=== PATIENT | male | born 1985 | race Caucasian/White ===

== ENCOUNTER → 2020-08-30 | Outpatient (CLI) | payer OTHER ==
[~2020-08-30] MED LIST: NONE PER PT
== END | disposition home or self-care (01) ==
LOC: STAR 15:14
PROVIDERS: ATTEND Thoracic Surgery (Cardiothoracic Vascular Surgery)
DX: Z20.822 Contact with and (suspected) exposure to COVID-19 (principal)
CPT/HCPCS: 87635

== ENCOUNTER 2020-09-05 09:45 | Day surgery (SDC) | payer OTHER ==
[~2020-09-05] VITALS: Ht 190.5 cm; Wt 108.3 kg
[2020-09-05] MEDS ORDERED: LACTATED RINGERS 1,000 ML IV SCH (10:30)
[2020-09-05] MEDS ORDERED: CHLORHEXIDINE 15 ML UDC MM ONE (10:30)
[2020-09-05] MEDS ORDERED: BUPIVACAINE/PF 0.5% ONE (11:36)
[2020-09-05] MEDS ORDERED: MIDAZOLAM 1 MG/ML, 2ML ONE (11:45)
[2020-09-05] MEDS ORDERED: FENTANYL PF 250 MCG/5ML ONE (11:46)
[2020-09-05] MEDS ORDERED: ONDANSETRON 2MG/ML, 2ML IVPush PRN (12:00)
[2020-09-05] MEDS ORDERED: ACETAMINOPHEN 325 MG TABLET PO PRN (12:00)
[2020-09-05] MEDS ORDERED: OXYcodone 5 MG/5 ML ORAL.SOL UDC PO PRN (12:00)
[2020-09-05] MEDS ORDERED: FENTANYL PF 100 MCG/2ML IV PRN (12:00)
[2020-09-05] MEDS ORDERED: morphine SULFATE 10 MG/ML, 1ML IVPush PRN (12:00)
[2020-09-05] MEDS ORDERED: hydrALAzine 20 MG/ML, 1ML IV PRN (12:00)
[2020-09-05] MEDS ORDERED: HYDROmorphone 1 MG/ML, 1ML INJ IVPush PRN (12:00)
[2020-09-05] MEDS ORDERED: LABETALOL 5MG/ML, 20ML IV PRN (12:00)
[2020-09-05] MEDS ORDERED: MEPERIDINE/PF 25MG/0.5ML IVPush PRN (12:00)
[2020-09-05] MEDS ORDERED: EPINEPHRINE 1 MG/ML, 1ML ONE (12:13)
[2020-09-05] MEDS ORDERED: BUPIVACAINE/PF 0.25% ONE (12:13)
[2020-09-05] MEDS ORDERED: CEFAZOLIN 1,000 MG ONE (12:17)
[2020-09-05] MEDS ORDERED: NEOSTIGMINE 1 MG/ML, 10ML ONE (12:17)
[2020-09-05] MEDS ORDERED: GLYCOPYRROLATE 0.2MG/1ML, 5ML ONE (12:17)
[2020-09-05] MEDS ORDERED: PROPOFOL 10 MG/ML, 20ML ONE (12:17)
[2020-09-05] MEDS ORDERED: ROCURONIUM 10MG/ML,5ML ONE (12:17)
[2020-09-05] MEDS ORDERED: BUPIVACAINE/PF-EPI 0.25% 1:200K INFIL ONE (12:22)
[2020-09-05] MEDS ORDERED: OXYcodone 5 MG/5 ML ORAL.SOL UDC ONE (13:36)
[2020-09-05] MEDS ORDERED: OXYC10TA6 PO (13:42)
== END 2020-09-05 15:40 | disposition home or self-care (01) ==
LOC: OUT 09:45
PROVIDERS: ATTEND Surgery
DX: K40.30 Unilateral inguinal hernia, with obstruction, without gangrene, not specified as recurrent (principal); Z91.018 Allergy to other foods; Z98.890 Other specified postprocedural states; Z80.3 Family history of malignant neoplasm of breast; Z83.3 Family history of diabetes mellitus; Z82.69 Family history of other diseases of the musculoskeletal system and connective tissue
CPT/HCPCS: 49507; C1781; J0171; J0690; J2250; J2704; J2710; J3010; J7120